=== PATIENT | female | born 2000 | race African-American/Black ===

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

== ENCOUNTER 2020-03-12 13:36 | Emergency (ER) | payer OTHER ==
[~2020-03-12] VITALS: Ht 165.1 cm; Wt 63.3 kg
[~2020-03-12 13:36] MED LIST: BACT800T5 PO; NAPR-837 PO
[2020-03-12] MEDS ORDERED: DOXY-350 PO (13:48)
[2020-03-12] MEDS ORDERED: IBUP80TA PO (13:49)
[2020-03-12] MEDS ORDERED: ACETAMINOPHEN 500 MG TAB PO ONE (14:15)
[2020-03-12 15:03] VITALS: O2SAT 98
[2020-03-12 15:06] LABS: BASO # 0.1 10^3/uL (0.0-0.2); BASO % 1.3 % (0.0-1.0); EOS # 0.1 10^3/uL (0.0-0.5); EOS % 1.8 % (0.0-3.0); HEMATOCRIT 43.5 % (36.0-47.0); HEMOGLOBIN 14.3 g/dl (12.0-15.5); LYMPH % 44.2 % (24.0-44.0); MEAN CORPUSCULAR HEMOGLOBIN 29.8 pg (27.0-33.0); MEAN CORPUSCULAR HGB CONC 32.9 g/dl (32.0-36.5); MEAN CORPUSCULAR VOLUME 90.6 fl (80.0-96.0); MONO # 0.6 10^3/uL (0.0-0.8); MONO % 13.7 % (0.0-5.0); NEUTROPHILS # 1.8 10^3/uL (1.5-8.5); NEUTROPHILS % 38.8 % (36.0-66.0); PLATELET COUNT, AUTOMATED 261 10^3/uL (150-450); WHITE BLOOD COUNT 4.5 10^3/uL (4.0-10.0)
[2020-03-12 15:13] LABS: INFLUENZA A AMPLIFICATION NEGATIVE (NEGATIVE); INFLUENZA B AMPLIFICATION NEGATIVE (NEGATIVE)
[2020-03-12 15:21] LABS: APPEARANCE, URINE HAZY (CLEAR); BACTERIA, URINE AUTO NEGATIVE (NEGATIVE); BILIRUBIN, URINE AUTO NEGATIVE (NEGATIVE); BLOOD, URINE BLOOD NEGATIVE (NEGATIVE); COLOR, URINE YELLOW (YELLOW); GLUCOSE, URINE (UA) AUTO NEGATIVE (NEGATIVE); KETONE, URINE AUTO NEGATIVE (NEGATIVE); LEUKOCYTE ESTERASE, URINE AUTO TRACE (NEGATIVE); NITRITE, URINE AUTO NEGATIVE (NEGATIVE); PROTEIN, URINE AUTO NEGATIVE (NEGATIVE); RBC, URINE AUTO 1 /HPF (0-3); SPECIFIC GRAVITY URINE AUTO 1.019 (1.002-1.035); SQUAMOUS EPITHELIAL CELL UR AU 11 /HPF (0-6); UROBILINOGEN, URINE AUTO 0.2 mg/dL (0.0-2.0); WBC, URINE AUTO 0 /HPF (0-3)
[2020-03-12 15:37] LABS: ALBUMIN 3.9 GM/DL (3.2-5.2); ALT/SGPT 13 U/L (12-78); BILIRUBIN,DIRECT 0.2 MG/DL (0.0-0.2); BILIRUBIN,TOTAL 0.6 MG/DL (0.2-1.0); BLOOD UREA NITROGEN 15 MG/DL (7-18); CALCIUM LEVEL 9.7 MG/DL (8.5-10.1); CARBON DIOXIDE LEVEL 26 MEQ/L (21-32); CHLORIDE LEVEL 106 MEQ/L (98-107); CK-MB VALUE MASS < 1.0 NG/ML (<3.6); CPK CREATINE PHOSPHOKINASE 110 U/L (26-192); GLUCOSE, FASTING 78 MG/DL (70-100); LIPASE 179 U/L (73-393); MB/CK RELATIVE INDEX 0.91 (< OR =4); POTASSIUM SERUM 4.3 MEQ/L (3.5-5.1); SODIUM LEVEL 139 MEQ/L (136-145); TOTAL PROTEIN 7.7 GM/DL (6.4-8.2); TROPONIN I < 0.02 NG/ML (< 0.10)
--- NOTE | 2020-03-12 16:44 | REP ---
INDICATION: cp, cough. COMPARISON: None. TECHNIQUE: AP portable seated chest FINDINGS: The lung hoffmann are well inflated without infiltrate, effusion, atelectasis or mass. The heart, mediastinal and hilar contours were normal. The aorta and airway were unremarkable. The bony thorax shows no focal lesion. There is no free air under the diaphragm. IMPRESSION: 1. No acute cardiopulmonary change. <Electronically signed by Jag Hurst > 03/12/20 1640
[2020-03-12 17:20] VITALS: BP 102/64
--- NOTE | 2020-03-13 18:54 | ECGEPIP ---
[facility] - ED Test Date: 2020-03-12 Pat Name: NIRALI WOODSON Department: Room: - Gender: Female Building Services Coordinator: femi : 2000 Requested By: JOSE C Burch PA-C Order Number: [id number] Reading MD: Brie Gilliam Measurements Intervals [place] Rate: 59 P: 73 VA: 136 QRS: 90 QRSD: 88 T: 52 QT: 421 QTc: 418 Interpretive Statements SINUS BRADYCARDIA WITH SINUS ARRHYTHMIA NO PRIOR Electronically Signed on 03-13-2020 18:54:10 EST by Brie Gilliam
--- NOTE | 2020-03-15 09:00 | ED PDOC ---
Post-Departure Follow-Up Called patient to update on negative COVID-19 test. All questions addressed. STEVE SIERRA TAYLOR E. PA-C Mar 15, 2020 09:00
== END 2020-03-12 17:22 | disposition home or self-care (01) ==
LOC: M ED 13:36
DX: J06.9 Acute upper respiratory infection, unspecified (principal); R07.9 Chest pain, unspecified; R05 Cough; R50.9 Fever, unspecified; R11.2 Nausea with vomiting, unspecified; R51.9 Headache, unspecified; F17.200 Nicotine dependence, unspecified, uncomplicated; Z79.899 Other long term (current) drug therapy
CPT/HCPCS: 36415; 71045; 80048; 80076; 81001; 82550; 82553; 83690; 84484; 85025; 87502; 87880; 93005; 99284; U0003